=== PATIENT | female | born 1955 | race Caucasian/White ===

== ENCOUNTER 2025-07-29 10:14 | Inpatient (IN) | payer MEDICARE ==
[~2025-07-29] VITALS: Ht 167.6 cm; Wt 67.1 kg
[2025-07-29] VITALS (33 sets, daily range): BP systolic 93–122; BP diastolic 63–80; TEMP 95.4–97.8; O2SAT 97–100
[2025-07-29] MEDS: IV NS 0.9% 1,000 ML BAG IV ONE (10:41)
[2025-07-29 10:51] LABS: PLATELET COUNT (AUTO) 342 K/uL (150-450); RED BLOOD CELL COUNT(AUTO) 3.90 MIL/uL (4.0-5.2); RED CELL DISTRIBUTION WIDTH 16.6 % (11.5-15.0); WHITE BLOOD COUNT (AUTO) 24.2 K/uL (4.3-11.0)
[2025-07-29 10:59] LABS: CALCIUM, SERUM 9.7 mg/dL (8.5-10.1); CREATININE 2.5 mg/dL (0.6-1.3); SODIUM SERUM 152 mmol/L (136-145)
[2025-07-29 11:00] LABS: ABG BASE EXCESS -3.4 mmol/L (-2.0-3.0); ABG OXYGEN SATURATION 96.9 % (94.0-98.0); ABG PCO2 28.0 mmHg (32.0-45.0); ABG PH 7.462 (7.350-7.450); ABG PO2 109.2 mmHg (83.0-108.0); ABG TOTAL HEMOGLOBIN 9.4 G/dL (12.0-16.0); FLOW, BLOOD GAS 4.00 L/min (0.00-30.00); FRACTIONATED INSPIRED OXYGEN 36.0 %; SITE, ABG LEFT RADIAL
[2025-07-29 11:02] LABS: INR 2.92 (0.91-1.10)
[2025-07-29 11:05] LABS: UREA NITROGEN, BLOOD 102 mg/dL (7-18)
[2025-07-29 11:06] LABS: LACTIC ACID 2.5 mmol/L (0.4-2.0)
[2025-07-29] MEDS: CEFEPIME 1 GM in IV D5W 50 ML IV ONE (11:07)
[2025-07-29 11:08] LABS: ASPARTATE AMINOTRANSFERASE 28 U/L (15-37); TOTAL PROTEIN, SERUM 6.7 g/dL (6.4-8.2)
[2025-07-29] MEDS: VANCOMYCIN 1 GM in IV D5W 250 ML IV ONE (11:15)
[2025-07-29] MEDS: PANTOPRAZOLE 80 MG in IV NS 0.9% 100 ML IV ONE (11:15)
[2025-07-29] MEDS ORDERED: DOSING PER PHARMACY-VANCOMYCIN IV XX PRN (11:30)
[2025-07-29] MEDS ORDERED: DOSING PER PHARMACY-CEFEPIME IVPB XX PRN (11:30)
[2025-07-29] MEDS ORDERED: ZOLPIDEM TARTRATE 5 MG TABLET PO PRN (11:30)
[2025-07-29] MEDS ORDERED: ONDANSETRON HCL/PF 4 MG/2 ML VIAL IVP PRN (11:30)
[2025-07-29] MEDS: PANTOPRAZOLE 80 MG in IV NS 0.9% 500 ML IV ONE (11:36)
[2025-07-29 12:03] LABS: APPEARANCE,URINE CLEAR (CLEAR); BLOOD, URINE TRACE-INTA Ery/uL (NEGATIVE); LEUKOCYTE ESTERASE ,URINE 2+ (NEGATIVE); NITRITE, URINE NEGATIVE (NEGATIVE); UGLUCOSE NEGATIVE (NEGATIVE)
[2025-07-29 12:12] LABS: ADD URINE CULTURE YES; SQUAMOUS EPITHELIAL CELL,UR 0-2 /HPF (None Seen)
[2025-07-29 12:42] LABS: ALCOHOL, BLOOD < 3 mg/dL (0-10)
[2025-07-29] MEDS ORDERED: NOREPINEPHRINE 8MG/250ML RTU 250 ML IV ONE (12:44)
[2025-07-29 12:45] LABS: AMPHETAMINE, URINE NEGATIVE (NEGATIVE); BARBITURATE, URINE NEGATIVE (NEGATIVE); BENZODIAZEPINE, URINE POSITIVE (NEGATIVE); CANNABINOID, URINE POSITIVE (NEGATIVE); COCCAINE, URINE NEGATIVE (NEGATIVE); OPIATE, URINE NEGATIVE (NEGATIVE)
[2025-07-29] MEDS: NOREPINEPHRINE 8 MG in IV NS 0.9% 250 ML IV ONE (12:55)
[2025-07-29] MEDS: POTASSIUM CL. PREMIX PERIPHER. 50 ML IV SCH ×2 (16:10→20:39)
[2025-07-29] MEDS: IV NS 0.9% 250 ML IV PRN (16:11)
[2025-07-29] MEDS: IV NS 0.9% 1,000 ML IV PRN (16:23)
[2025-07-29] MEDS: NOREPINEPHRINE 8 MG in IV NS 0.9% 242 ML IV PRN (16:31)
[2025-07-29] MEDS: VANCOMYCIN 750 MG in IV D5W 250 ML IV ONE (16:31)
[2025-07-29] MEDS ORDERED: PANTOPRAZOLE 80 MG in IV NS 0.9% 500 ML IV SCH ×2 (19:00→19:30)
[2025-07-29] MEDS: AZITHROMYCIN 500 MG in IV D5W 250 ML IV SCH (20:44)
[2025-07-29] MEDS ORDERED: PANTOPRAZOLE 40 MG VIAL IV SCH (21:00)
[2025-07-29 21:05] LABS: PLATELET COUNT (AUTO) 319 K/uL (150-450); RED BLOOD CELL COUNT(AUTO) 3.46 MIL/uL (4.0-5.2); RED CELL DISTRIBUTION WIDTH 16.3 % (11.5-15.0); WHITE BLOOD COUNT (AUTO) 25.5 K/uL (4.3-11.0)
[2025-07-29 21:06] LABS: CALCIUM, SERUM 8.7 mg/dL (8.5-10.1); CREATININE 2.1 mg/dL (0.6-1.3); SODIUM SERUM 152.0 mmol/L (136-145)
[2025-07-29 21:10] LABS: UREA NITROGEN, BLOOD 93.0 mg/dL (7-18)
[2025-07-29] MEDS: Z GUARD REMEDY 4 OZ OINT TP SCH (21:59)
[2025-07-29] MEDS: PANTOPRAZOLE 80 MG in IV NS 0.9% 500 ML IV SCH (22:29)
[2025-07-30] VITALS (98 sets, daily range): BP systolic 77–114; BP diastolic 36–81; TEMP 97.8–99.5; O2SAT 88–100
[2025-07-30 01:48] LABS: ABG BASE EXCESS -3.7 mmol/L (-2.0-3.0); ABG OXYGEN SATURATION 89.3 % (94.0-98.0); ABG PCO2 21.1 mmHg (32.0-45.0); ABG PH 7.535 (7.350-7.450); ABG PO2 57.4 mmHg (83.0-108.0); ABG TOTAL HEMOGLOBIN 10.4 G/dL (12.0-16.0); FLOW, BLOOD GAS 10.00 L/min (0.00-30.00); FRACTIONATED INSPIRED OXYGEN 60.0 %; SITE, ABG RIGHT RADIAL
[2025-07-30] MEDS: PHENYLEPHRINE 10 MG/ML VIAL ONE (02:50)
[2025-07-30] MEDS: D5W IV PRN (02:57)
[2025-07-30] MEDS: PHENYLEPHRINE IV PRN (02:57)
[2025-07-30 04:25] LABS: PLATELET COUNT (AUTO) 298 K/uL (150-450); RED BLOOD CELL COUNT(AUTO) 2.96 MIL/uL (4.0-5.2); RED CELL DISTRIBUTION WIDTH 16.8 % (11.5-15.0); WHITE BLOOD COUNT (AUTO) 15.1 K/uL (4.3-11.0)
[2025-07-30 04:39] LABS: CALCIUM, SERUM 8.2 mg/dL (8.5-10.1); CREATININE 1.8 mg/dL (0.6-1.3); PHOSPHORUS 2.2 mg/dL (2.5-4.9); SODIUM SERUM 152.0 mmol/L (136-145); UREA NITROGEN, BLOOD 79.0 mg/dL (7-18)
[2025-07-30] MEDS: Z GUARD REMEDY 4 OZ OINT TP PRN (08:12)
[2025-07-30] MEDS: IV 1/2NS 1000 ML 1,000 ML IV PRN (09:44)
[2025-07-30] MEDS: CEFEPIME 2 GM in IV D5W 100 ML IV SCH (10:03)
[2025-07-30] MEDS: THERAHONEY GEL 1.5 OZ TUBE TP SCH (11:46)
[2025-07-30 13:39] LABS: CREATININE, URINE 71.0 MG/DL (30.0-125.0); URINE SODIUM, RANDOM 14.0 mmol/l (40-220); URINE TOTAL PROTEIN 35.1 mg/dL (0-11.9)
[2025-07-30 14:29] LABS: IRON, SERUM 26 ug/dl (50-175)
[2025-07-30 14:38] LABS: LDL 44 mg/dL (0-99)
[2025-07-30] MEDS: VANCOMYCIN 750 MG in IV D5W 250 ML IV SCH (15:29)
[2025-07-30] MEDS: CLOTRIMAZOLE/BETAMETASONE DIPROPIONATE 15 GM TUBE TP SCH (16:28)
[2025-07-30] MEDS: Sodium Phosphate 15 MMOL in IV NS 0.9% 245 ML IV SCH (16:41)
[2025-07-31] VITALS (101 sets, daily range): BP systolic 78–138; BP diastolic 45–100; TEMP 97.3–98.3; O2SAT 90–100
[2025-07-31 04:22] LABS: PLATELET COUNT (AUTO) 248 K/uL (150-450); RED BLOOD CELL COUNT(AUTO) 2.47 MIL/uL (4.0-5.2); RED CELL DISTRIBUTION WIDTH 17.3 % (11.5-15.0); WHITE BLOOD COUNT (AUTO) 13.4 K/uL (4.3-11.0)
[2025-07-31 04:29] LABS: ASPARTATE AMINOTRANSFERASE 55.0 U/L (15-37); CALCIUM, SERUM 7.5 mg/dL (8.5-10.1); CREATININE 1.0 mg/dL (0.6-1.3); PHOSPHORUS 3.4 mg/dL (2.5-4.9); SODIUM SERUM 151.0 mmol/L (136-145); TOTAL PROTEIN, SERUM 4.4 g/dL (6.4-8.2); UREA NITROGEN, BLOOD 46.0 mg/dL (7-18)
[2025-07-31 04:35] LABS: CREATINE KINASE, TOTAL 108.0 U/L (26-192)
[2025-07-31 04:48] LABS: LYMPHOCYTES % (MANUAL) 7 % (16-48); MONOCYTES % (MANUAL) 8 % (0-11.0); NEUTROPHILS % (MANUAL) 85 (42-76); PLATELET ESTIMATE ADEQUATE
[2025-07-31] MEDS: MEROPENEM 500 MG in IV NS 0.9% 50 ML IV SCH (17:53)
[2025-07-31 19:26] LABS: OCCULT BLOOD STOOL POSITIVE (NEGATIVE)
[2025-08-01] VITALS (36 sets, daily range): BP systolic 104–129; BP diastolic 58–84; TEMP 97–98.5; O2SAT 86–100
[2025-08-01 04:33] LABS: PLATELET COUNT (AUTO) 209 K/uL (150-450); RED BLOOD CELL COUNT(AUTO) 2.63 MIL/uL (4.0-5.2); RED CELL DISTRIBUTION WIDTH 16.8 % (11.5-15.0); WHITE BLOOD COUNT (AUTO) 10.0 K/uL (4.3-11.0)
[2025-08-01 04:44] LABS: CALCIUM, SERUM 7.6 mg/dL (8.5-10.1); CREATININE 0.8 mg/dL (0.6-1.3); PHOSPHORUS 2.7 mg/dL (2.5-4.9); SODIUM SERUM 147.0 mmol/L (136-145); UREA NITROGEN, BLOOD 24.0 mg/dL (7-18)
[2025-08-01 05:08] LABS: PTH, INTACT 152 pg/mL (15-65)
[2025-08-01 07:07] LABS: FOLIC ACID 2.9 ng/mL (>3.0)
[2025-08-01] MEDS: IV D5W 1,000 ML IV SCH (11:14)
[2025-08-01] MEDS: POTASSIUM CL. PREMIX PERIPHER. 50 ML IV SCH (11:51)
[2025-08-02] VITALS: BP 120/64; TEMP 97.6; O2SAT 100
[2025-08-02 04:00] VITALS: BP 120/63; TEMP 97.9; O2SAT 100
[2025-08-02 07:39] LABS: PLATELET COUNT (AUTO) 274 K/uL (150-450); RED BLOOD CELL COUNT(AUTO) 3.02 MIL/uL (4.0-5.2); RED CELL DISTRIBUTION WIDTH 16.5 % (11.5-15.0); WHITE BLOOD COUNT (AUTO) 7.2 K/uL (4.3-11.0)
[2025-08-02 08:00] VITALS: BP 135/75; TEMP 97.7; O2SAT 100
[2025-08-02 08:27] LABS: CALCIUM, SERUM 7.9 mg/dL (8.5-10.1); CREATININE 0.7 mg/dL (0.6-1.3); PHOSPHORUS 2.1 mg/dL (2.5-4.9); SODIUM SERUM 143.0 mmol/L (136-145); UREA NITROGEN, BLOOD 11.0 mg/dL (7-18)
[2025-08-02] MEDS: Magnesium 1GM/D5W 100ML PREMIX 100 ML IV SCH (09:32)
[2025-08-02] MEDS: POTASSIUM CL. PREMIX PERIPHER. 50 ML IV SCH (10:35)
[2025-08-02 12:00] VITALS: BP 130/76; TEMP 97.1; O2SAT 100
[2025-08-02 12:08] LABS: EOSINOPHILS % (MANUAL) 1 % (0-4); LYMPHOCYTES % (MANUAL) 10 % (16-48); MONOCYTES % (MANUAL) 4 % (0-11.0); MYELOCYTES % 4 % (0-0); NEUTROPHILS % (MANUAL) 81 (42-76)
[2025-08-02 12:09] LABS: PLATELET ESTIMATE ADEQUATE
[2025-08-02 16:00] VITALS: BP 130/70; TEMP 98.1; O2SAT 100
[2025-08-02] MEDS: K PHOS NEUTRAL 250 MG TABLET PO ONE (17:19)
[2025-08-02] MEDS: PANTOPRAZOLE 40 MG VIAL IV SCH (17:20)
[2025-08-02] MEDS: IV D5W 1,000 ML IV PRN (19:39)
[2025-08-02 20:00] VITALS: BP 133/92; TEMP 97.9; O2SAT 99
[2025-08-03] VITALS: BP 137/85; TEMP 98; O2SAT 97
[2025-08-03 04:00] VITALS: BP 125/87; TEMP 97; O2SAT 100
[2025-08-03 08:24] VITALS: BP 138/80; TEMP 97.2; O2SAT 100
[2025-08-03 08:25] LABS: PLATELET COUNT (AUTO) 316 K/uL (150-450); RED BLOOD CELL COUNT(AUTO) 3.38 MIL/uL (4.0-5.2); RED CELL DISTRIBUTION WIDTH 16.4 % (11.5-15.0); WHITE BLOOD COUNT (AUTO) 7.4 K/uL (4.3-11.0)
[2025-08-03 08:52] LABS: CALCIUM, SERUM 7.9 mg/dL (8.5-10.1); CREATININE 0.6 mg/dL (0.6-1.3); PHOSPHORUS 2.2 mg/dL (2.5-4.9); SODIUM SERUM 143.0 mmol/L (136-145); UREA NITROGEN, BLOOD 6.0 mg/dL (7-18)
[2025-08-03] MEDS: POTASSIUM CL. PREMIX PERIPHER. 50 ML IV SCH (10:52)
[2025-08-03 12:01] VITALS: BP 138/80; TEMP 97.3; O2SAT 100
[2025-08-03] MEDS: K PHOS NEUTRAL 250 MG TABLET PO ONE (16:00)
[2025-08-03 16:52] VITALS: BP 130/80; TEMP 97.7; O2SAT 99
[2025-08-03] MEDS: Sodium Phosphate 15 MMOL in IV NS 0.9% 245 ML IV SCH (17:29)
[2025-08-03 20:00] VITALS: BP 143/85; TEMP 97.7; O2SAT 100
[2025-08-04] VITALS: BP 143/85; TEMP 97.7; O2SAT 100
[2025-08-04 04:00] VITALS: BP 139/85; TEMP 97.3; O2SAT 97
[2025-08-04 06:31] LABS: CALCIUM, SERUM 8.0 mg/dL (8.5-10.1); CREATININE 0.6 mg/dL (0.6-1.3); PHOSPHORUS 2.1 mg/dL (2.5-4.9); SODIUM SERUM 142.0 mmol/L (136-145); UREA NITROGEN, BLOOD 2.0 mg/dL (7-18)
[2025-08-04 06:48] LABS: PLATELET COUNT (AUTO) 317 K/uL (150-450); RED BLOOD CELL COUNT(AUTO) 3.38 MIL/uL (4.0-5.2); RED CELL DISTRIBUTION WIDTH 16.3 % (11.5-15.0); WHITE BLOOD COUNT (AUTO) 6.6 K/uL (4.3-11.0)
[2025-08-04 08:00] VITALS: BP 145/84; TEMP 97.1; O2SAT 98
[2025-08-04] MEDS: Magnesium 1GM/D5W 100ML PREMIX 100 ML IV SCH (09:24)
[2025-08-04] MEDS: POTASSIUM CL. PREMIX PERIPHER. 50 ML IV SCH (11:07)
[2025-08-04 12:00] VITALS: BP 145/84; TEMP 97.1; O2SAT 98
[2025-08-04 16:00] VITALS: BP 145/84; TEMP 97.1; O2SAT 98
[2025-08-04] MEDS: Sodium Phosphate 15 MMOL in IV NS 0.9% 245 ML IV ONE (17:00)
[2025-08-04 20:00] VITALS: BP 143/90; TEMP 98; O2SAT 97
[2025-08-05 04:00] VITALS: BP 143/88; TEMP 97.5; O2SAT 98
[2025-08-05 07:33] LABS: CALCIUM, SERUM 8.1 mg/dL (8.5-10.1); CREATININE 0.6 mg/dL (0.6-1.3); SODIUM SERUM 142.0 mmol/L (136-145); UREA NITROGEN, BLOOD 1.0 mg/dL (7-18)
[2025-08-05] MEDS: POTASSIUM CHLORIDE 20 MEQ POWDER PACKET PO SCH (11:30)
[2025-08-05 12:00] VITALS: BP 145/88; TEMP 98.5; O2SAT 98
[2025-08-05 20:00] VITALS: BP 144/96; TEMP 98; O2SAT 98
[2025-08-05] MEDS: QUETIAPINE FUMARATE 25 MG TABLET PO SCH (20:59)
[2025-08-06 04:00] VITALS: BP 132/86; TEMP 98; O2SAT 98
[2025-08-06 07:17] LABS: CALCIUM, SERUM 8.0 mg/dL (8.5-10.1); CREATININE 0.6 mg/dL (0.6-1.3); SODIUM SERUM 143.0 mmol/L (136-145); UREA NITROGEN, BLOOD 0.0 mg/dL (7-18)
[2025-08-06] MEDS: POTASSIUM CHLORIDE 20 MEQ POWDER PACKET PO SCH (10:02)
[2025-08-06 11:39] LABS: LDL 92.0 mg/dL (0-99)
[2025-08-06 16:00] VITALS: BP 142/84; TEMP 97.7; O2SAT 96
[2025-08-07] VITALS: BP 132/82; TEMP 97.9; O2SAT 97
[2025-08-07 07:11] LABS: CALCIUM, SERUM 8.3 mg/dL (8.5-10.1); CREATININE 0.7 mg/dL (0.6-1.3); SODIUM SERUM 142.0 mmol/L (136-145); UREA NITROGEN, BLOOD 2.0 mg/dL (7-18)
[2025-08-07 08:00] VITALS: BP 124/87; TEMP 98.2; O2SAT 97
[2025-08-07] MEDS ORDERED: ACET325T53 PO (12:02)
[2025-08-07] MEDS ORDERED: CLOT15CR5 TP (12:02)
[2025-08-07] MEDS ORDERED: MERO500V23 IV (12:02)
[2025-08-07 13:10] LABS: VITAMIN B1 THIAMINE,WB 58.0 nmol/L (66.5-200.0)
[2025-08-07 14:07] LABS: FOLIC ACID 2.1 ng/mL (>3.0)
[2025-08-07 14:59] LABS: INR 1.05 (0.91-1.10)
[2025-08-07 16:00] VITALS: BP 136/95; TEMP 97.9; O2SAT 97
[2025-08-07 20:00] VITALS: BP 146/95; TEMP 98; O2SAT 97
[2025-08-08 04:00] VITALS: BP_SYST 145; BP_SYST 92; BP_DIAS 77; BP_DIAS 92; TEMP 97.6; TEMP 97.8; O2SAT 94; O2SAT 98
[2025-08-08 07:22] LABS: CALCIUM, SERUM 8.6 mg/dL (8.5-10.1); CREATININE 0.7 mg/dL (0.6-1.3); SODIUM SERUM 141.0 mmol/L (136-145); UREA NITROGEN, BLOOD 4.0 mg/dL (7-18)
[2025-08-08 08:00] VITALS: BP 136/93; TEMP 97.5; O2SAT 97
[2025-08-08 12:00] VITALS: BP 136/93; TEMP 97.5; O2SAT 97
[2025-08-08 16:00] VITALS: BP 128/94; TEMP 97.3; O2SAT 98
[2025-08-08 20:00] VITALS: BP 127/88; TEMP 98.4; O2SAT 98
[2025-08-09 04:00] VITALS: BP 145/98; TEMP 98.1; O2SAT 97
[2025-08-09 08:00] VITALS: BP 144/88; TEMP 97.5; O2SAT 100
[2025-08-09 08:12] LABS: CALCIUM, SERUM 8.4 mg/dL (8.5-10.1); CREATININE 0.8 mg/dL (0.6-1.3); SODIUM SERUM 140.0 mmol/L (136-145); UREA NITROGEN, BLOOD 4.0 mg/dL (7-18)
[2025-08-09] MEDS: MAGNESIUM HYDROXIDE 30 ML UDC PO PRN (14:26)
[2025-08-09 16:00] VITALS: BP 122/88; TEMP 97.9; O2SAT 100
[2025-08-09 20:00] VITALS: BP 138/80; TEMP 98.1; O2SAT 98
[2025-08-09] MEDS: ACETAMINOPHEN 325 MG TABLET PO PRN (21:28)
[2025-08-10 03:57] VITALS: BP 91/67; TEMP 97.2; O2SAT 97
[2025-08-10 07:11] LABS: CALCIUM, SERUM 8.6 mg/dL (8.5-10.1); CREATININE 0.8 mg/dL (0.6-1.3); SODIUM SERUM 142.0 mmol/L (136-145); UREA NITROGEN, BLOOD 3.0 mg/dL (7-18)
[2025-08-10 08:00] VITALS: BP 114/82; TEMP 98.1; O2SAT 98
[2025-08-10] MEDS: POTASSIUM CHLORIDE 20 MEQ TAB.PRT.SR PO ONE (08:00)
[2025-08-10] MEDS: POTASSIUM CL. PREMIX PERIPHER. 50 ML IV SCH (12:35)
[2025-08-10 16:00] VITALS: BP 119/90; TEMP 97.9; O2SAT 98
[2025-08-10 20:00] VITALS: BP_SYST 120; BP_SYST 91; BP_DIAS 65; BP_DIAS 92; TEMP 97.5; TEMP 98.1; O2SAT 98
[2025-08-11 04:00] VITALS: BP 135/90; TEMP 97.2; O2SAT 97
[2025-08-11 07:15] LABS: CALCIUM, SERUM 8.8 mg/dL (8.5-10.1); CREATININE 0.7 mg/dL (0.6-1.3); SODIUM SERUM 141.0 mmol/L (136-145); UREA NITROGEN, BLOOD 6.0 mg/dL (7-18)
[2025-08-11 08:00] VITALS: BP 136/92; TEMP 97.9; O2SAT 96
[2025-08-11 16:00] VITALS: BP 129/81; TEMP 97.5; O2SAT 96
[2025-08-11 20:22] VITALS: BP 129/96; TEMP 98.2; O2SAT 97
[2025-08-11] MEDS: MAG HYDROX/AL HYDROX/SIMETH 30 ML UDC PO PRN (22:27)
[2025-08-12 04:00] VITALS: BP 138/91; TEMP 97.7; O2SAT 98
[2025-08-12 08:00] VITALS: BP 137/90; TEMP 97.7; O2SAT 98
[2025-08-12 16:00] VITALS: BP 123/100; TEMP 97.6; O2SAT 98
[2025-08-13 04:09] LABS: VITAMIN B1 THIAMINE,WB 39.8 nmol/L (66.5-200.0)
[2025-08-14 07:07] LABS: *SPE A/G RATIO 1.1 (0.7-1.7); *SPE ALBUMIN 2.2 g/dL (2.9-4.4); *SPE ALPHA-1-GLOBULIN 0.3 g/dL (0.0-0.4); *SPE ALPHA-2-GLOBULIN 0.6 g/dL (0.4-1.0); *SPE BETA GLOBULIN 0.6 g/dL (0.7-1.3); *SPE GLOBULIN, TOTAL 2.0 g/dL (2.2-3.9); *SPE M-SPIKE Not Observed g/dL (Not Observed); *SPE PROTEIN TOTAL 4.2 g/dL (6.0-8.5); *SPEGAMMA GLOBULIN 0.5 g/dL (0.4-1.8)
== END 2025-08-12 17:26 | disposition home health service (06) | DRG 871 ==
LOC: ER 10:16 → ICU 14:48 → TELE1 08-01 10:10 → MEDSG1 08-03 11:49
PROVIDERS: ADMIT Student in an Organized Health Care Education/Training Program; ATTEND Nurse Practitioner Acute Care
PROC: 02HV33Z Insertion of Infusion Device into Superior Vena Cava, Percutaneous Approach (ICD-10-PCS; principal; 2025-07-30)
PROC: 30233N1 Transfusion of Nonautologous Red Blood Cells into Peripheral Vein, Percutaneous Approach (ICD-10-PCS; 2025-07-31)
DX: A41.9 Sepsis, unspecified organism (principal); G92.8 Other toxic encephalopathy; J15.69 Pneumonia due to other Gram-negative bacteria; J69.0 Pneumonitis due to inhalation of food and vomit; I21.A1 Myocardial infarction type 2; R65.21 Severe sepsis with septic shock; N17.0 Acute kidney failure with tubular necrosis; J96.01 Acute respiratory failure with hypoxia; E44.0 Moderate protein-calorie malnutrition; N39.0 Urinary tract infection, site not specified; K92.2 Gastrointestinal hemorrhage, unspecified; E87.0 Hyperosmolality and hypernatremia; Z16.12 Extended spectrum beta lactamase (ESBL) resistance; D68.9 Coagulation defect, unspecified; J98.11 Atelectasis; E87.6 Hypokalemia; N18.9 Chronic kidney disease, unspecified; Z66 Do not resuscitate; B96.89 Other specified bacterial agents as the cause of diseases classified elsewhere; K44.9 Diaphragmatic hernia without obstruction or gangrene; K86.89 Other specified diseases of pancreas; E88.09 Other disorders of plasma-protein metabolism, not elsewhere classified; Z51.5 Encounter for palliative care; Z78.9 Other specified health status; F10.11 Alcohol abuse, in remission; B96.20 Unspecified Escherichia coli [E. coli] as the cause of diseases classified elsewhere; D64.9 Anemia, unspecified; E86.0 Dehydration; E86.1 Hypovolemia; G93.0 Cerebral cysts; R32 Unspecified urinary incontinence; L22 Diaper dermatitis; Z78.1 Physical restraint status; S30.810A Abrasion of lower back and pelvis, initial encounter; X58.XXXA Exposure to other specified factors, initial encounter; Y92.9 Unspecified place or not applicable; S40.011A Contusion of right shoulder, initial encounter; R68.0 Hypothermia, not associated with low environmental temperature; E86.9 Volume depletion, unspecified; M89.8X9 Other specified disorders of bone, unspecified site
CPT/HCPCS: 31720; 36415; 36569; 36600; 70450-TC; 71045-TC; 76770-TC; 80048-TC; 80053-TC; 80061-TC; 80076-TC; 81001; 82272-TC; 82550-TC; 82570-TC; 82607-TC; 82728-TC; 82803-TC; 83540-TC; 83605-TC; 83735-TC; 83921; 83970; 84100-TC; 84155; 84165; 84300-TC; 84425; 84439-TC; 84443-TC; 84484-TC; 85025-TC; 85027-TC; 85610-TC; 85730-TC; 86850-TC; 87040-TC; 87070-TC; 87081-TC; 87086-TC; 87186-TC; 87205-TC; 92526; 92611; 93307-TC; 94640-TC; 94799-TC; 97110-TC; 97112-TC; 97116-TC; 97530-TC; 97535-TC; A4223; A9563; G0378; G0480; J0456; J0692; J2185; J2470; J3373; J3374; J3475; J3480; J3490; J7030; J7040; J7042; J7050; J7060; J7070; P9016